=== PATIENT | male | born 1945 | race Caucasian/White ===

== ENCOUNTER 2017-03-13 11:18 | Outpatient (CLI) | payer MEDICARE ==
[2017-03-13 12:46] LABS: #Eosinphils 0.2 thou/uL (0.0-0.7); #Lymphocytes 1.5 thou/uL (1.20-3.40); #Monocytes 0.5 thou/uL (0.11-0.59); #Neutrophils 3.2 thou/uL (1.40-6.50); %Basophils 0.8 % (0.0-1.0); %Eosinophils 3.8 % (0.0-10.0); %Lymphocytes 27.6 % (21.0-51.0); %Monocytes 8.5 % (0.0-10.0); %Neutrophils 59.3 % (42.0-75.0); Hemoglobin 15.2 g/dL (14.0-18.0); Mean Corpuscular HGB CONC 34.8 g/dL (32.0-36.0); Mean Corpuscular Hemoglobin 31.6 pg (27.0-31.0); Mean Corpuscular Volume 90.8 fl (80.0-94.0); Mean Platelet Volume 6.8 fL (7.4-10.4); Platelet Count 182 thou/uL (130-400); RBC Distribution Width 12.2 % (11.5-14.5); White Blood Cell (WBC) Count 5.3 thou/uL (4.8-10.8)
[2017-03-13 13:05] LABS: ALT (SGPT) 41 U/L (8-55); AST (SGOT) 26 U/L (5-34); Albumin 4.1 g/dL (3.4-4.8); Alkaline Phosphatase 65 U/L (40-150); Anion Gap 12 mmol/L (10-20); BUN (Urea Nitrogen) 15 mg/dL (8.4-25.7); Bilirubin, Total 0.9 mg/dL (0.2-1.2); Calc. Creatinine Clearance 0 mL/min (70-130); Chloride 108 mmol/L (98-107); Cholesterol 158 mg/dl (< 200 Desired); Estimated GFR-MDRD 79; Globulin 2.4 g/dL (2.4-3.5); Glucose 88 mg/dL (83-110); HDL Cholesterol 40 mg/dL (>60 Neg Risk); LDL Cholesterol, Calculated 96 mg/dL; Potassium 4.3 mmol/L (3.5-5.1); Protein, Total 6.5 g/dL (5.8-8.1); Sodium 140 mmol/L (136-145); Triglycerides 112 mg/dL (Less than 150)
[2017-03-13 13:26] LABS: Carbon Dioxide 24 mmol/L (23-31)
== END 2017-03-13 11:19 | disposition home or self-care (01) ==
LOC: HPCALD 11:18
PROVIDERS: ATTEND Family Medicine
DX: Z12.5 Encounter for screening for malignant neoplasm of prostate (principal); I10 Essential (primary) hypertension; E78.5 Hyperlipidemia, unspecified
CPT/HCPCS: 80053; 80061; 85025; G0103

== ENCOUNTER 2018-06-10 11:13 | Outpatient (CLI) | payer MEDICARE ==
--- NOTE | 2018-06-10 14:31 | RAD ---
LEFT KNEE FOUR VIEWS: HISTORY: Medial pain. COMPARISON: None. FINDINGS: Small suprapatellar effusion. Mild loss of joint space height in the patellofemoral compartment. Mi nimal loss of joint space height in the medial compartment. No fracture. IMPRESSION: Nonspecific joint effusion and bicompartmental degenerative change. POS: ROBERT
== END 2018-06-10 11:14 | disposition home or self-care (01) ==
LOC: BURRAD 11:13
PROVIDERS: ATTEND Family Medicine
DX: M25.562 Pain in left knee (principal); M25.462 Effusion, left knee; M17.12 Unilateral primary osteoarthritis, left knee

== ENCOUNTER 2020-10-19 09:34 | Outpatient (CLI) | payer MEDICARE | END 2020-10-19 09:35 | disposition home or self-care (01) | LOC: BURRAD 09:34 | PROVIDERS: ATTEND Family Medicine | DX: M25.551 Pain in right hip (principal); M16.11 Unilateral primary osteoarthritis, right hip ==